=== PATIENT | female | born 1945 | race Hispanic/Latino ===

== ENCOUNTER → 2022-09-07 | Emergency (ER) | payer MEDICARE ==
[~2022-09-07] VITALS: Ht 152.4 cm; Wt 65.8 kg
[~2022-09-07] MED LIST: DICL100G32 TP
[2022-09-07 14:00] VITALS: BP 147/82
== END ==
LOC: EDH 10:37
DX: S20.211A Contusion of right front wall of thorax, initial encounter (principal); I10 Essential (primary) hypertension; E11.9 Type 2 diabetes mellitus without complications; E78.00 Pure hypercholesterolemia, unspecified; F03.90 Unspecified dementia, unspecified severity, without behavioral disturbance, psychotic disturbance, mood disturbance, and anxiety; W01.0XXA Fall on same level from slipping, tripping and stumbling without subsequent striking against object, initial encounter; Y93.89 Activity, other specified; Y92.091 Bathroom in other non-institutional residence as the place of occurrence of the external cause; Y99.8 Other external cause status
CPT/HCPCS: 71101; 93005

== ENCOUNTER 2023-11-17 16:59 | Emergency (ER) | payer MEDICARE ==
[~2023-11-17] VITALS: Ht 152.4 cm; Wt 74.8 kg
[2023-11-17 17:40] VITALS: BP 140/79; PULSE 103; RESP 20; TEMP 98.5
--- NOTE | 2023-11-17 18:41 | ERN ---
ED Note History of Present Illness Stated Complaint: FELL, RIB PAIN Chief Complaint: Mechanical Fall Time Seen by MD: 18:20 Dictation: PATIENT IS A 78-YEAR-OLD FEMALE HERE WITH HER DAUGHTER WITH COMPLAINTS OF A TRIP FALL ON THURSDAY WHILE AT HOME. SHE WAS IN HER BEDROOM SHE TRIPPED AND FELL LANDING ON HER RIGHT SIDE AND IS COMPLAINING ONLY OF THE RIGHT LATERAL CHEST AND RIB AREA. NO LOC NO BLOOD THINNERS NO HEAD INJURY. NO TRAUMA ALERT CRITERIA. PATIENT IS STEADY GAIT TO TRIAGE, DAUGHTER STATES SHE HAS NOT GIVEN HER ANYTHING TO A PRIVATE ARRIVAL TO HER PAIN AND DID NOT TAKE HER TO HER DOCTOR BECAUSE HER MOTHER DID NOT WANT TO GO. Allergies: Coded Allergies: No Known Allergies (Unverified Allergy, Unknown, 09/07/22) Home Meds Active Scripts Diclofenac Sodium (Diclofenac Sodium) 100 Gm Gel..gram., 2 GM TP TID PRN for PAIN, #1 TUBE Prov:BENJAMIN ZUNIGA PAC 09/07/22 Past Medical History Past Medical History: No Pertinent History Surgical History: Unknown PSYCH History: no pertinent psych hx History: Not Applicable RN Note Reviewed/Agreed w/PFSH: Yes Review of System Dictation CONSTITUTIONAL: NEGATIVE EXCEPT FOR HPI HEAD/FACE: NEGATIVE EXCEPT FOR HPI EENT: NEGATIVE EXCEPT FOR HPI RESPIRATORY: NEGATIVE EXCEPT FOR HPI RIGHT LATERAL CHEST PAIN GASTROINTESTINAL/ABDOMINAL: NEGATIVE EXCEPT FOR HPI GENITOURINARY: NEGATIVE EXCEPT FOR HPI MUSCULOSKELETAL: NEGATIVE EXCEPT FOR HPI INTEGUMENTARY: NEGATIVE EXCEPT FOR HPI NEUROLOGICAL/PSYCH: NEGATIVE EXCEPT FOR HPI HEMATOLOGIC/LYMPHATIC: NEGATIVE EXCEPT FOR HPI ALL SYSTEMS NEGATIVE, EXCEPT NOTED ABOVE. 13 POINT REVIEW OF SYSTEMS ASSESSED AND ALL NEGATIVE EXCEPT FOR ABOVE. Initial Vital Sign VS Vital Signs Date Time Temp Pulse Resp B/P (MAP) Pulse Ox O2 Delivery O2 Flow Rate FiO2 11/17/23 17:40 98.4 103 20 140/79 100 Room Air 0 Physical Exam Dictation VITAL SIGNS REVIEWED GENERAL APPEARANCE: ALERT, ORIENTED X 3, MODERATE ACUTE DISTRESS, WELL DEVELOPED, NOURISHED. HEAD AND FACE: NON-TRAUMATIC. EYES: PERRL, PINK CONJUNCTIVAS, EYELID NO TRAUMA, ANTERIOR CHAMBER WITH ARCUS SENILIS. EARS: PINNAS INTACT AND NO SIGNS OF TRAUMA OR ERYTHEMA EAR CANALS CLEAR AND NO DISCHARGE TM NO ERYTHEMA NOSE: NO DISCHARGE, NO BLEEDING. OROPHARYNX: MOUTH NORMAL, TONGUE PINK, PHARYNX CLEAR,NO ERYTHEMA, TONSILS NO EXUDATES, NO ABSCESSES NOTED, MUCOUS MEMBRANE MOIST NECK: SUPPLE, NON-TENDER, NO THYROMEGALY, NO MASSES, NO JVD, NO BRUITS BREAST:DEFERRED CHEST: RIGHT INFEROLATERAL CHEST WALL TENDERNESS WITH PALPATION, NO CREPITUS, NO PARADOXICAL MOVEMENT, NO RETRACTIONS SKIN INTACT NO FLAIL T LUNGS:CLEAR, WELL-VENTILATED, SYMMETRIC, NO RALES, NO WHEEZING, NO RHONCHI, NO STRIDOR, GOOD BREATH SOUNDS BILATERALLY HEART: REGULAR RATE, REGULAR RHYTHM, NO MURMUR, NO GALLOPS VASCULAR: NO PERIPHERAL EDEMA, ABDOMEN: SOFT, POSITIVE BOWEL SOUNDS, NONDISTENDED, NO GUARDING, NONTENDER, NO REBOUND, NO MASSES NO HEPATOMEGALY, NO SPLENOMEGALY, NO SOUZA'S SIGN, NO HERNIAS. RECTAL: DEFERRED GENITAL: DEFERRED NEUROLOGICAL: NORMAL SPEECH, MOTOR FUNCTION INTACT, SENSORY FUNCTION INTACT MUSCULOSKELETAL: NECK NONTENDER, FULL RANGE OF MOTION, BACK NONTENDER, FULL RANGE OF MOTION, EXTREMITIES: NONTENDER, FULL RANGE OF MOTION SKIN: COLOR PINK, DRY, NO TURGOR, NO RASH, NO LACERATIONS, NO ABRASIONS, NO CONTUSIONS. LYMPHATIC: DEFERRED Results (Laboratory/Radiology) Laboratory/Radiology RIB SERIES NEGATIVE LUNGS EXPANDED Labs Reviewed?: Yes ED Course ED Course Orders Procedure Category Date Status Time Ribs Uni Rt W Pa RAD 11/17/23 Taken Chest 3+ Vws 18:38 Acetaminophen With PHA 11/17/23 Complete Codeine (Tylenol-Code 19:00 Current Medications Medications (Trade) Dose Ordered Sig/Luis Route PRN Reason Start Time Stop Time Status Last Admin Dose Admin Acetaminophen/ Codeine Phosphate (TYLenol-coDEINE TAB) 1 tab ONCE ONCE PO 11/17/23 19:00 11/17/23 19:01 DC 11/17/23 19:30 Vital Signs Date Time Temp Pulse Resp B/P (MAP) Pulse Ox O2 Delivery O2 Flow Rate FiO2 11/17/23 17:40 98.4 103 20 140/79 100 Room Air 0 PATIENT DISCHARGED HOME WITH TYLENOL ARTHRITIS 650 [id number] EVERY 8 HOURS AND SEE HER PRIMARY CARE DOCTOR. Medical Decision Making MDM MEDICAL DECISION-MAKING BASED ON PANIC MANAGEMENT OF PAIN, RIB SERIES X-RAYS NEGATIVE DISCHARGED HOME TO FOLLOW UP WITH HER PRIMARY CARE DOCTOR DX & DISP Disposition: Discharge Departure Impression: Primary Impression: Contusion of right chest wall Additional Impression: Fall Condition: Stable Scripts Acetaminophen (Tylenol) 500 Mg Tab 500 MG PO Q6HPRN PRN for PAIN, #60 TAB TWO TABLETS BY MOUTH EVERY 6-8 HOURS NEEDED FOR PAIN Prov: ANG TILLMAN [employer] OPERATIONS INSPECTOR 11/17/23 Additional Instructions: FOLLOW-UP WITH PRIMARY CARE PROVIDER IN 1 TO 2 DAYS. TAKE MEDICATIONS DIRECTED HERE IN THE EMERGENCY ROOM. OKAY TO CONTINUE HOME MEDICATIONS UNLESS OTHERWISE DISCUSSED DURING YOUR VISIT IN THE EMERGENCY ROOM TODAY. RETURN TO YOUR NEAREST EMERGENCY ROOM IF SYMPTOMS WORSEN OR IF THERE IS NO IMPROVEMENT. CALL 911 IF YOU NEED IMMEDIATE ASSISTANCE. TAKE TYLENOL OR MOTRIN CFFW-MAC-EVZILXY NEEDED AND IF NO CONTRAINDICATIONS ARE PRESENT. INCREASE ORAL HYDRATION. A WOUND CULTURE OR URINE CULTURE WAS ORDERED HERE IN THE EMERGENCY ROOM DEPARTMENT PLEASE FOLLOW-UP WITH PRIMARY CARE PROVIDER AND ADVISE THEM TO GET REPEAT PORTS FROM OUR FACILITY. IF YOU HAD ANY LEILA WRAP/SPLINTS THAT WERE APPLIED HERE, PLEASE DO NOT REMOVE THEM UNTIL YOU SEE YOUR PRIMARY CARE OR SPECIALTY. FOLLOW UP WITH YOUR DOCTOR IN 1-2 DAYS Referrals: MARIE LOPEZ DO (PCP) Time of Disposition: 19:50 I have reviewed the case, and I agree with, Diagnosis and Plan ANG TILLMAN NP Nov 17, 2023 18:41
[2023-11-17] MEDS: acetaMINOPHEN WITH coDEINE 1 TAB TAB PO ONE (19:30)
--- NOTE | 2023-11-17 19:51 | HMCIMG ---
Exam Type: RIBS UNI RT W PA CHEST 3+ VWS Clinical Information: RIGHT LATERAL POSTERIOR RIB PAIN STATUS POST FALL ON THURSDAY. Comparison: None Findings: Routine views reveal no evidence of fracture, dislocation, destructive process, or other rib abnormalities. No soft tissue abnormality is noted either. There is no evidence of pneumothorax. IMPRESSION: NORMAL RIB SERIES.
[2023-11-17] MEDS ORDERED: ACET-66 PO (19:52)
[2023-11-21] MEDS ORDERED: CEPH500T PO (09:23)
[2023-11-21] MEDS ORDERED: CYAN-106 PO (09:29)
== END 2023-11-17 21:15 | disposition home or self-care (01) ==
LOC: EDH 16:59
DX: S20.211A Contusion of right front wall of thorax, initial encounter (principal); Z79.899 Other long term (current) drug therapy; W18.39XA Other fall on same level, initial encounter; Y93.89 Activity, other specified; Y92.89 Other specified places as the place of occurrence of the external cause; Y99.8 Other external cause status
CPT/HCPCS: 71101